=== PATIENT | male | born 1955 | race African-American/Black ===

== ENCOUNTER 2017-06-18 16:20 | Inpatient (IN) | payer OTHER ==
[~2017-06-18] VITALS: Ht 162.6 cm; Wt 72.6 kg
--- NOTE | 2017-06-18 16:45 | ED GENERAL ADULT ---
See Addendum History of Present Illness General Chief Complaint: General Adult Stated Complaint: HIGH BS Source: patient, old records, EMS Exam Limitations: poor historian Vital Signs & Intake/Output Vital Signs & Intake/Output Vital Signs Date Time Temp Pulse Resp B/P B/P Pulse O2 O2 Flow FiO2 Mean Ox Delivery Rate 06/18 1942 99.8 118 18 135/91 98 Room Air 06/18 1820 97 06/18 1814 100.0 06/18 1726 100.0 129 20 143/93 99 Room Air 06/18 1718 101.1 06/18 1701 98 Room Air 06/18 1634 101.1 144 18 150/89 98 Room Air Room Air Allergies Coded Allergies: No Known Allergies (06/18/17) Triage Note: PT TO TRIAGE FOR HYPERGLYCEMIA SINCE THIS MORNING 338 AT HOME. PT HAS A CLINICAL EDUCATION COORDINATOR, HX OF STROKE. PT IS A POOR HISTORIAN, HR 144, TEMP 101.1 AND BG 260 Triage Nurses Notes Reviewed? yes Onset: Just prior to arrival Duration: day(s): (1) Timing: recent history Injury Environment: home Severity: moderate No Modifying Factors: none HPI: Patient is a 62-year-old male with history of diabetes, CVA, hypertension and hyperlipidemia presenting to the emergency department with caregiver from home with chief complaint of elevated blood glucose levels that were increasing as the day went by today. According to the caregiver patient had chills after his morning shower. Patient denying any chest pain palpitations or shortness of breath. Denies any coughing or congestion. According to the caregiver there is no fevers at home just the chills. They decided to come in for evaluation due to increasing blood glucose level. According to the caregiver patient is acting at baseline. Patient has residual deficits of the right upper and lower extremity secondary to recent CVA. Patient unsure if he is on any blood thinners. Patient denying any body aches. Denies any urinary frequency urgency or dysuria. History is limited secondary to patient being a poor historian. (Tamica HAGEN,Mallorie) Past History Travel History Traveled to [place] past 21 day No Medical History Any Pertinent Medical History? see below for history Neurological: CVA EENT: NONE Cardiovascular: hypertension, hyperlipidemia Respiratory: NONE Gastrointestinal: NONE Hepatic: NONE Renal: NONE Musculoskeletal: NONE Psychiatric: NONE Endocrine: diabetes Blood Disorders: NONE Cancer(s): NONE Surgical History Surgical History: non-contributory Psychosocial History What is your primary language Turkmen Tobacco Use: Quit >30 days ago ETOH Use: denies use Illicit Drug Use: denies illicit drug use Family History Hx Contributory? No (Mallorie Russell) Review of Systems Review of Systems Constitutional: Reports: see HPI, fever, malaise. Comments Review of systems: See HPI, All other systems negative. Constitutional, no weight loss HEENT: No visual changes no sore throat no congestion Cardiovascular: No chest pain ,palpitation , orthopnea or ankle swelling Skin, no jaundice no rashes Respiratory: No dyspnea cough sputum or hemoptysis GI: No nausea no vomiting : No dysuria No hematuria Muscle skeletal: no back pain, no neck pain, Neurologic: No numbness no INCREASED confusion Psych: No stress anxiety or depression,. Heme/endocrine: No bruising no bleeding no polyuria or polydipsia Immunology: No splenectomy or history of AIDS (Mallorie Russell) Physical Exam Physical Exam General Appearance: well developed/nourished, no apparent distress, alert, awake , comfortable Comments: Well-developed well-nourished person in no acute distress HEENT: extraocular motion intact, no nystagmus. Pupils equally round and reactive to light and accommodation. Nose is atraumatic. External auditory canal and Tympanic membranes clear. Pharynx normal. No swelling or edema. Moist oral mucosa. Uvula midline. Neck: Supple, no lymphadenopathy, normal range of motion without pain or tenderness, no local rigidity. Back: Nontender, no CVA tenderness. Cardiovascular: Tachycardic rate and rhythms no audible murmurs rubs or gallops to auscultation, normal JVP Respiratory: Chest nontender. Mild respiratory distress, noted on exam is increased work of breathing with use of abdominal muscles..scattered rhonchi to auscultation bilaterally Abdomen: diffusely distended, hypoactive bowel sounds, diffuse tenderness with guarding throughout, no appreciable organomegaly. No ascites Extremity: No edema, no calf tenderness to palpation, normal and equal pulses. Neuro: Alert oriented to person place and time, motor deficits on the right upper and right lower extremity secondary to CVA. Patient has a right foot drop brace in place on the right lower extremity. Retail Sales Teammate strength is 5 out of 5 in left upper extremity. Unable to perform quill stripper strength testing of the right upper extremity. Able to perform straight leg raise on the lower extremities bilaterally. Skin: No appreciable rash on exposed skin, skin is warm and dry. Psych: Mood and affect is normal, memory and judgment is normal. Core Measures ACS in differential dx? No CVA/TIA Diagnosis: No Sepsis Present: Yes Sepsis Focused Exam Completed? Yes (Tamica HAGEN,Mallorie) Progress Differential Diagnoses I considered the following diagnoses in my evaluation of the patient: Pneumonia , bronchitis, influenza, sepsis, UTI, SBO, appendicitis, diverticulitis, pancreatitis Plan of Care: Orders Procedure Date/time Status PROTHROMBIN TIME 06/19 06 Active CBC WITHOUT DIFFERENTIAL 06/19 06 Active BASIC ELECTROLYTES PLUS BUN&CR 06/19 06 Active Add-on Test (ER Only) 06/18 2004 Active STREP PNEUMO URINARY ANTIGEN 06/18 184 Active LEGIONELLA URINARY ANTIGEN 06/18 184 Active Add-on Test (ER Only) 06/18 1722 Active PARTIAL THROMBOPLASTIN TIME 06/18 1653 Complete PROTHROMBIN TIME 06/18 1653 Complete LIPASE 06/18 1653 Complete RAPID VIRAL INFLUENZA A 06/18 1645 Complete CULTURE,URINE 06/18 1644 Active URINALYSIS 06/18 1644 Complete BLOOD CULTURE 06/18 1637 Active TROPONIN LEVEL 06/18 1637 Complete LACTIC ACID 06/18 1637 Complete COMPREHENSIVE METABOLIC PANEL 06/18 1637 Complete CBC WITHOUT DIFFERENTIAL 06/18 1637 Complete ACETONE 06/18 1637 Complete EKG 06/18 1637 Active FingerStick- Glucose 06/18 1624 Active Laboratory Tests 06/18/17 1937: Lactic Acid Cancelled 06/18/17 184: Urine Color YEL, Urine Clarity CLEAR, Urine pH 7.5, Ur Specific [place] 1.010, Urine Protein NEG, Urine Ketones NEG, Urine Nitrite NEG, Urine Bilirubin NEG, Urine Urobilinogen 1.0, Ur Leukocyte Esterase NEG, Ur Microscopic SEDIMENT EXAMINED, Urine RBC 3-5, Urine Hemoglobin SMALL H, Urine Glucose 100 H 06/18/17 1653: Anion Gap 12, Estimated GFR > 60, BUN/Creatinine Ratio 11.7, Glucose 280 H, Lactic Acid 1.3, Calcium 9.5, Total Bilirubin 0.9, AST 28, ALT 43, Alkaline Phosphatase 85, Troponin I < 0.01, Total Protein 7.3, Albumin 4.2, Globulin 3.1, Albumin/Globulin Ratio 1.4, Lipase 75, PT 38.8 H, INR 3.51 H, APTT 38 H, CBC w Diff NO MAN DIFF REQ, RBC 4.88, MCV 89.0, MCH 29.3, MCHC 33.0, RDW 14.3, MPV 6.8 L, Gran % 82.6 H, Lymphocytes % 9.4 L, Monocytes % 7.8, Eosinophils % 0.1 , Basophils % 0.1, Absolute Granulocytes 16.9 H, Absolute Lymphocytes 1.9, Absolute Monocytes 1.6 H, Absolute Eosinophils 0, Absolute Basophils 0, Acetone Level NEGATIVE 06/18/17 1644: Lipase Cancelled Microbiology 06/18 1841 URINE ROUT: Legionella Antigen - RECD 06/18 1841 URINE ROUT: Streptococcus pneumoniae Antigen (M - RECD 06/18 1841 URINE ROUT: Urine Culture - RECD 06/18 1729 NASOPHARYN: Influenza Virus A & B Rapid Smear - COMP 06/18 1715 BLOOD: Blood Culture - RECD 06/18 1637 BLOOD: Blood Culture - ORD 06/18/2017 5:30:56 PM patient is febrile to 101, tachycardic in the 130s, has diffuse abdominal pain with guarding on exam. Patient also has scattered rhonchi on exam. Concern for infectious process secondary to fever and increasing blood glucose levels at home. Patient treated with IV fluids on arrival. Given IV Tylenol for fever. Pending lab work. Patient will likely need IV antibiotics. Flu swab was also sent. Patient will also have chest x- ray and CT of the abdomen. Diagnostic Imaging: Viewed by Me: Radiology Read, CT Scan. Discussed w/RAD: Radiology Read, CT Scan. Radiology Impression: PATIENT: YAS YIN PRESENT AGE: 62 PATIENT ACCOUNT NO: [id number] : 55 LOCATION: [facility] ORDERING PHYSICIAN: Mallorie HAGEN SERVICE DATE: 06/18/17 EXAM TYPE: RAD - XRY-PORTABLE CHEST XRAY EXAMINATION: XR PORTABLE CHEST CLINICAL INFORMATION: Fever. Rule out pneumonia. COMPARISON: None TECHNIQUE: Portable frontal view of the chest was obtained. FINDINGS: There is hazy airspace opacification in the mid left lung. The right lung is clear. No pleural effusions are seen. The cardiomediastinal silhouette is normal. No acute osseous abnormality is seen. IMPRESSION: Hazy opacity in the mid left lung which is most suspicious for pneumonia. Correlate with auscultation. Recommend follow-up imaging to resolution. DICTATED BY: Rogerio Lyons MD DATE/TIME DICTATED:06/18/171750 WHOLESALE ACCOUNT EXECUTIVE:AJAY DATE/TIME TRANSCRIBED:06/18/171750 CONFIDENTIAL, DO NOT COPY WITHOUT APPROPRIATE AUTHORIZATION. <Electronically signed in Other Vendor System> SIGNED BY: Rogerio Lyons MD 06/18/171754, PATIENT: YAS YIN PRESENT AGE: 62 PATIENT ACCOUNT NO: [id number] : 55 LOCATION: [facility] ORDERING PHYSICIAN: Mallorie HAGEN SERVICE DATE: 06/18/17 EXAM TYPE: CAT - CT ABD & PELVIS W IV CONTRAST EXAMINATION: CT ABDOMEN AND PELVIS WITH CONTRAST CLINICAL INFORMATION: Fever, leukocytosis, abdominal distention. COMPARISON: None TECHNIQUE: Multidetector volumetric imaging was performed of the abdomen and pelvis following IV administration of 95 mL of Optiray 320 intravenous contrast. Sagittal and coronal reformatted images were obtained on the technologist's workstation. The patient was unable to raise arms over head, and there is resultant streak artifact. DLP: 403 mGy-cm FINDINGS: LUNG BASES: There are peripheral reticular changes in the right greater than left lung base suggesting some degree of fibrosis. There is some platelike opacity partially visualized along the left major fissure. The imaged heart and pericardium appear unremarkable. There is a hiatal hernia along the dorsal margin of which there is a curvilinear density with the appearance of mesh. Correlation with surgical history in this locale is recommended. LIVER, GALLBLADDER, AND BILIARY TREE: The liver is normal in size, shape, and attenuation. No focal hepatic lesion or biliary ductal dilatation is present. The gallbladder is unremarkable with no evidence of radiopaque gallstones, gallbladder wall thickening, or obvious pericholecystic inflammatory changes. PANCREAS: Unremarkable. SPLEEN: Unremarkable. ADRENAL GLANDS: Unremarkable. KIDNEYS AND URETERS: There is moderate scarring in the mid to lower pole of the right kidney. Otherwise the kidneys are noted to enhance symmetrically. No evidence of hydronephrosis. No convincing nephrolithiasis on this postcontrast acquisition. No abnormality along the course of the ureters. BLADDER: Under distended. Unremarkable. GASTROINTESTINAL TRACT: The stomach is nondistended. Proximal loops of small bowel are fluid-filled and top normal in caliber. There is some slightly more decompressed loops of bowel distally. No discrete transition points are visualized. There is moderate stool in the proximal colon and extensive stool in the distal sigmoid colon and rectum. No diverticula. A normal appendix is visualized with an appendicolith but no surrounding inflammatory change. No free air. No free fluid. ABDOMINAL WALL: No significant hernia is appreciated. LYMPH NODES: No adenopathy. VASCULAR: The aorta is normal in caliber with moderate calcification infrarenally. The portal vein is patent. PELVIC VISCERA: Unremarkable. OSSEOUS STRUCTURES: There are 5 nonrib-bearing lumbar type vertebral bodies. There is a mild dextroconvex thoracolumbar scoliosis. No spondylolysis. Mild multilevel spondylosis. No acute osseous abnormality. IMPRESSION: 1. There is moderate stool in the majority of the colon and extensive stool in the distal sigmoid colon and rectal vault. The loops of small bowel are nonspecific without saul dilatation, and without discrete transition point. No surrounding inflammatory change. No significant colonic diverticula. Normal caliber appendix with a nonobstructive appendicolith. 2. There is a hiatal hernia with a curvilinear mass shows along its posterior margin. Correlation with surgical history is suggested. No surrounding inflammatory changes visualized. 3. There is extensive cortical scarring in the mid to lower pole of the right kidney. No hydronephrosis or nephrolithiasis. 4. There is some peripheral reticular changes in the lung bases, right more than left, suggesting fibrosis. Partially visualized platelike opacity along the left major fissure, possibly atelectasis. DICTATED BY: Darline Rowland MD DATE/TIME DICTATED:06/18/171804 WHOLESALE ACCOUNT EXECUTIVE:AJAY DATE/TIME TRANSCRIBED:1804 CONFIDENTIAL, DO NOT COPY WITHOUT APPROPRIATE AUTHORIZATION. < Electronically signed in Other Vendor System> SIGNED BY: Darline Rowland MD 06/18/171817 Initial ED EKG: SINUS TACHYCARDIA (Mallorie Russell) ED Sepsis Exam Date of Focused Sepsis Exam: 06/18/17 Time of Focused Sepsis Exam: 1810 Sepsis Cardiac Exam: Tachycardia Sepsis Resp Exam: Ronchi Sepsis Cap Refill Exam: >2 sec Sepsis Peripheral Pulse Exam: Normal Sepsis Peripheral Pulse Location: Radial Sepsis Skin Color Exam: Normal for Ethnicity Skin Temp/Moisture Exam: Warm/Dry (Mallorie Russell) Departure Departure Disposition: STILL A PATIENT Condition: Stable Clinical Impression Primary Impression: Pneumonia Qualifiers: Pneumonia type: due to unspecified organism Laterality: left Lung location: lower lobe of lung Qualified Code: J18.1 - Lobar pneumonia, unspecified organism Secondary Impressions: Sepsis Qualifiers: Sepsis type: sepsis due to unspecified organism Qualified Code: A41.9 - Sepsis, unspecified organism Referrals: Ava KAUR,Devendra Bhagat (PCP/Family) Departure Forms: Customer Survey General Discharge Information Admission Note Spoke With: Dale Garcia MD Documentation of Exam: Documentation of any treatments & extenuating circumstances including Concerns Regarding Discharge (functional status, medication knowledge or non-compliance, living conditions, etc.) that warrant an admission rather than observation: Patient is septic, requiring IV antibiotics for pneumonia, requiring blood cultures return, pulmonology consultation, serial breathing treatments, IV hydration per sepsis protocol. Discharge at this time is medically harmful, patient poor candidate for outpatient treatment. (Mallorie Russell) PA/INSPECTOR FILTER TIP Co-Sign Statement Statement: ED Attending supervision documentation- [] I saw and evaluated the patient. I have also reviewed all the pertinent lab results and diagnostic results. I agree with the findings and the plan of care as documented in the PA's/INSPECTOR FILTER TIP's documentation. [X] I have reviewed the ED Record and agree with the PA's/INSPECTOR FILTER TIP's documentation. [] Additions or exceptions (if any) to the PAs/INSPECTOR FILTER TIP's note and plan are summarized below: [] (Carmelo Posadas DO) Critical Care Note Critical Care Note Critical Care Time: 30-74 min (Mallorie Russell) Critical Care Time: 30-74 min (Mallorie Russell)
[2017-06-18 17:12] LABS: ABSOLUTE BASOPHIL COUNT 0 /CUMM (0.0-0.2); ABSOLUTE EOSINOPHIL COUNT 0 /CUMM (0.0-0.7); ABSOLUTE GRANULOCYTE CT 16.9 /CUMM (1.4-6.5); ABSOLUTE LYMPH COUNT 1.9 /CUMM (1.2-3.4); ABSOLUTE MONOCYTE COUNT 1.6 /CUMM (0.10-0.60); BASOPHIL % 0.1 % (0.0-2.0); EOSINOPHIL % 0.1 % (0-5); HEMATOCRIT 43.4 % (42-52); MEAN CORPUSCULAR HGB 29.3 PG (27.0-31.0); MEAN PLATELET VOLUME 6.8 FL (7.4-10.4); PLATELET COUNT 298 /CUMM (130-400); RBC DISTRIBUTION WIDTH 14.3 % (11.5-14.5); RED BLOOD CELL CT 4.88 /CUMM (4.70-6.10); WHITE BLOOD CELL COUNT 20.5 /CUMM (4.8-10.8)
[2017-06-18 17:15] LABS: GRANULOCYTE % 82.6 % (42.2-75.2)
[2017-06-18 17:46] LABS: PT 38.8 SEC (9.4-12.5); PTT 38 SEC (25-37)
--- NOTE | 2017-06-18 17:55 | RADIOLOGY REPORT ---
EXAMINATION: XR PORTABLE CHEST CLINICAL INFORMATION: Fever. Rule out pneumonia. COMPARISON: None TECHNIQUE: Portable frontal view of the chest was obtained. FINDINGS: There is hazy airspace opacification in the mid left lung. The right lung is clear. No pleural effusions are seen. The cardiomediastinal silhouette is normal. No acute osseous abnormality is seen. IMPRESSION: Hazy opacity in the mid left lung which is most suspicious for pneumonia. Correlate with auscultation. Recommend follow-up imaging to resolution.
--- NOTE | 2017-06-18 18:18 | CT SCAN REPORT ---
EXAMINATION: CT ABDOMEN AND PELVIS WITH CONTRAST CLINICAL INFORMATION: Fever, leukocytosis, abdominal distention. COMPARISON: None TECHNIQUE: Multidetector volumetric imaging was performed of the abdomen and pelvis following IV administration of 95 mL of Optiray 320 intravenous contrast. Sagittal and coronal reformatted images were obtained on the technologist's workstation. The patient was unable to raise arms over head, and there is resultant streak artifact. DLP: 403 mGy-cm FINDINGS: LUNG BASES: There are peripheral reticular changes in the right greater than left lung base suggesting some degree of fibrosis. There is some platelike opacity partially visualized along the left major fissure. The imaged heart and pericardium appear unremarkable. There is a hiatal hernia along the dorsal margin of which there is a curvilinear density with the appearance of mesh. Correlation with surgical history in this locale is recommended. LIVER, GALLBLADDER, AND BILIARY TREE: The liver is normal in size, shape, and attenuation. No focal hepatic lesion or biliary ductal dilatation is present. The gallbladder is unremarkable with no evidence of radiopaque gallstones, gallbladder wall thickening, or obvious pericholecystic inflammatory changes. PANCREAS: Unremarkable. SPLEEN: Unremarkable. ADRENAL GLANDS: Unremarkable. KIDNEYS AND URETERS: There is moderate scarring in the mid to lower pole of the right kidney. Otherwise the kidneys are noted to enhance symmetrically. No evidence of hydronephrosis. No convincing nephrolithiasis on this postcontrast acquisition. No abnormality along the course of the ureters. BLADDER: Under distended. Unremarkable. GASTROINTESTINAL TRACT: The stomach is nondistended. Proximal loops of small bowel are fluid-filled and top normal in caliber. There is some slightly more decompressed loops of bowel distally. No discrete transition points are visualized. There is moderate stool in the proximal colon and extensive stool in the distal sigmoid colon and rectum. No diverticula. A normal appendix is visualized with an appendicolith but no surrounding inflammatory change. No free air. No free fluid. ABDOMINAL WALL: No significant hernia is appreciated. LYMPH NODES: No adenopathy. VASCULAR: The aorta is normal in caliber with moderate calcification infrarenally. The portal vein is patent. PELVIC VISCERA: Unremarkable. OSSEOUS STRUCTURES: There are 5 nonrib-bearing lumbar type vertebral bodies. There is a mild dextroconvex thoracolumbar scoliosis. No spondylolysis. Mild multilevel spondylosis. No acute osseous abnormality. IMPRESSION: 1. There is moderate stool in the majority of the colon and extensive stool in the distal sigmoid colon and rectal vault. The loops of small bowel are nonspecific without saul dilatation, and without discrete transition point. No surrounding inflammatory change. No significant colonic diverticula. Normal caliber appendix with a nonobstructive appendicolith. 2. There is a hiatal hernia with a curvilinear mass shows along its posterior margin. Correlation with surgical history is suggested. No surrounding inflammatory changes visualized. 3. There is extensive cortical scarring in the mid to lower pole of the right kidney. No hydronephrosis or nephrolithiasis. 4. There is some peripheral reticular changes in the lung bases, right more than left, suggesting fibrosis. Partially visualized platelike opacity along the left major fissure, possibly atelectasis.
--- NOTE | 2017-06-18 20:10 | Admission Certification ---
Admission Certification Certification Statement - As attending physician, I certify that at the time of - admission, based on clinical presentation, severity of - symptoms, need for further diagnostic testing and - therapeutic interventions, and risk of adverse outcomes - without in-hospital treatment, in my clinical assessment, - this patient requires an acute hospital stay for a minimum - of two nights or longer. I have also considered psychsocial - factors such as support system, advanced age, financial - issues, cognitive issues, and failed out-patient treatments, - past re-admission history, safety of patient, and lack of - compliance as applicable. Specific rationale supporting this admission is: Sepsis, community acquired pneumonia.
--- NOTE | 2017-06-18 20:45 | History & Physical ---
Lucina Coy 06/18/172044: General Information and HPI History of Present Illness: Mr. Herbert is a 62-year-old male with a past medical history of CVA with residual RUE paralysis, DM, HTN, HLD, AFIB, seizures who presents to the ED with hyperglycemia and chills for one day. Patient poor historian. Patient has a home caregiver. As per patient's caregiver-Roscoe, he reports patient was very lethargic today which prompted him to check his fingerstick glucose which measured in the 160s which is unusual for him, yesterday patient's glucose reading was in 80-90s. He reached out to the visiting nurse who advised to give the patient fluids. Caregiver also reports patient was having chills while bathing and in bed but did not record his temperature. Patient has a good appetite and does not have any diet restrictions or dysphagia. Patient has a caregiver 5 days a week and a visiting nurse once a week. At baseline he walks with a walker. His caregiver assist him with his ADLs. Patient reports his last bowel movement was yesterday. He denies palpitations, SOB, CP, nausea, vomiting, urinary or bowel symptoms. Allergies/Medications Allergies: Coded Allergies: No Known Allergies (06/18/17) Home Med list Albuterol Sulfate (Proair Hfa) 90 MCG HFA.AER.AD 2 PUF INH Q4-6 PRN PRN lung (Reported) Fluticasone/Salmeterol (Advair 250-50 Diskus) 250 MCG-50 MCG/DOSE BLST.W.DEV 1 PUF INH BID lung (Reported) Metformin HCl (Glucophage) 1,000 MG TABLET 1 TAB PO DAILY dm (Reported) Metoprolol Tartrate 25 MG TABLET 1 TAB PO BID heart (Reported) Pantoprazole Sodium (Protonix) 40 MG TABLET.DR 1 TAB PO DAILY gerd (Reported) Simvastatin (Simvastatin*) 20 MG TABLET 1 TAB PO QPM heart (Reported) Tamsulosin HCl (Flomax) 0.4 MG CAP.ER.24H 1 CAP PO DAILY BPH (Reported) Warfarin Sodium (Coumadin) 6 MG TABLET 1 TAB PO DAILY heart afib (Reported) Zonisamide (Zonegran) 100 MG CAPSULE 1 CAP PO DAILY SEIZURE (Reported) Past History Travel History Traveled to [place] past 21 day No Medical History Neurological: CVA EENT: NONE Cardiovascular: hypertension, hyperlipidemia Respiratory: NONE Gastrointestinal: NONE Hepatic: NONE Renal: NONE Musculoskeletal: NONE Psychiatric: NONE Endocrine: diabetes Blood Disorders: NONE Cancer(s): NONE Surgical History Surgical History: non-contributory Past Family/Social History Psychosocial History ETOH Use: denies use Illicit Drug Use: denies illicit drug use Review of Systems Review of Systems Constitutional: Reports: see HPI. Exam & Diagnostic Data Last 24 Hrs of Vital Signs/I&O Vital Signs Date Time Temp Pulse Resp B/P B/P Pulse O2 O2 Flow FiO2 Mean Ox Delivery Rate 06/18 1942 99.8 118 18 135/91 98 Room Air 06/18 1820 97 06/18 1814 100.0 06/18 1726 100.0 129 20 143/93 99 Room Air 06/18 1718 101.1 06/18 1701 98 Room Air 06/18 1634 101.1 144 18 150/89 98 Room Air Room Air Physical Exam General Appearance Alert, Oriented X3, Cooperative, No Acute Distress Sepsis Skin Exam (color): Normal for Ethnicity HEENT Atraumatic, PERRLA, EOMI, Mucous Membr. moist/pink Neck Supple, No JVD Cardiovascular Regular Rate, Normal S1, Normal S2 Lungs BL rhonchi Abdomen Normal Bowel Sounds, L-side abdominal tenderness Neurological Diminished sensation on RLE Extremities No Edema, Normal Pulses, No Tenderness/Swelling, RUE paralysis, LE/ RLE 4/5 motor strength Sepsis Peripheral Pulse Location: Dorsalis Pedis Sepsis Peripheral Pulse Exam: Normal Sepsis Cap Refill Exam: <2 Sec Last 24 Hrs of Labs/Kaushik: Laboratory Tests 06/18/17 193: Lactic Acid Cancelled 06/18/171841: Urine Color YEL, Urine Clarity CLEAR, Urine pH 7.5, Ur Specific [place] 1.010, Urine Protein NEG, Urine Ketones NEG, Urine Nitrite NEG, Urine Bilirubin NEG, Urine Urobilinogen 1.0, Ur Leukocyte Esterase NEG, Ur Microscopic SEDIMENT EXAMINED, Urine RBC 3-5, Urine Hemoglobin SMALL H, Urine Glucose 100 H 06/18/17 165: Anion Gap 12, Estimated GFR > 60, BUN/Creatinine Ratio 11.7, Glucose 280 H, Lactic Acid 1.3, Calcium 9.5, Total Bilirubin 0.9, AST 28, ALT 43, Alkaline Phosphatase 85, Troponin I < 0.01, Total Protein 7.3, Albumin 4.2, Globulin 3.1, Albumin/Globulin Ratio 1.4, Lipase 75, PT 38.8 H, INR 3.51 H, APTT 38 H, CBC w Diff NO MAN DIFF REQ, RBC 4.88, MCV 89.0, MCH 29.3, MCHC 33.0, RDW 14.3, MPV 6.8 L, Gran % 82.6 H, Lymphocytes % 9.4 L, Monocytes % 7.8, Eosinophils % 0.1 , Basophils % 0.1, Absolute Granulocytes 16.9 H, Absolute Lymphocytes 1.9, Absolute Monocytes 1.6 H, Absolute Eosinophils 0, Absolute Basophils 0, Acetone Level NEGATIVE 06/18/17 1644: Lipase Cancelled Microbiology 06/18 2130 LOWER RESP: Respiratory Culture - ORD 06/18 2130 LOWER RESP: Gram Stain - ORD 06/18 1841 URINE ROUT: Legionella Antigen - COMP 06/18 1841 URINE ROUT: Streptococcus pneumoniae Antigen (M - COMP 06/18 1841 URINE ROUT: Urine Culture - RECD 06/18 1729 NASOPHARYN: Influenza Virus A & B Rapid Smear - COMP 06/18 1715 BLOOD: Blood Culture - RECD 06/18 1637 BLOOD: Blood Culture - ORD Diagnostic Data EKG Results NS, HR 135, QTc 330 CXR Results FINDINGS: There is hazy airspace opacification in the mid left lung. The right lung is clear. No pleural effusions are seen. The cardiomediastinal silhouette is normal. No acute osseous abnormality is seen. IMPRESSION: Hazy opacity in the mid left lung which is most suspicious for pneumonia. Correlate with auscultation. Recommend follow-up imaging to resolution. Other Results CT ABDOMEN AND PELVIS WITH CONTRAST IMPRESSION: 1. There is moderate stool in the majority of the colon and extensive stool in the distal sigmoid colon and rectal vault. The loops of small bowel are nonspecific without saul dilatation, and without discrete transition point. No surrounding inflammatory change. No significant colonic diverticula. Normal caliber appendix with a nonobstructive appendicolith. 2. There is a hiatal hernia with a curvilinear mass shows along its posterior margin. Correlation with surgical history is suggested. No surrounding inflammatory changes visualized. 3. There is extensive cortical scarring in the mid to lower pole of the right kidney. No hydronephrosis or nephrolithiasis. 4. There is some peripheral reticular changes in the lung bases, right more than left, suggesting fibrosis. Partially visualized platelike opacity along the left major fissure, possibly atelectasis. Assessment/Plan Assessment: Mr. Herbert is a 62-year-old male with a past medical history of CVA with residual RUE paralysis, DM, HTN, HLD, AFIB, seizures who presents to the ED with lethargy , hyperglycemia and chills for one day. Though patient meets sepsis criteria per SIRS, his score is 0 (not high mortality risk) per qSOFA without evidence of organ failure but can be repeated if patient's clinical status changes. Problem list: CAP Supratherapeutic INR Plan: Admit to general med for further evaluation and management IV ceftriaxone and azithromycin for CAP Resume home meds Dose Warfarin per INR Hemoglobin A1c Accuchek and Novolog SS Await pancultures Pain: Acetaminophen Contact supervising caregiver-Ted (vm left 06/18/17) Diet: Heart healthy DVT ppx: Warfarin Code: Full As Ranked By This Provider Problem List: 1. Pneumonia Qualifiers Pneumonia type: due to unspecified organism Laterality: left Lung location: lower lobe of lung Qualified Code: J18.1 - Lobar pneumonia, unspecified organism Core Measures/Misc (11/18) Acute Coronary Syndrome ACS Diagnosis: No Congestive Heart Failure Congestive Heart Failure Diagnosis No Cerebrovascular Accident CVA/TIA Diagnosis: No VTE (View Protocol) VTE Risk Factors Age>40 No Mechanical VTE Prophylaxis d/t N/A MechProphylax Ordered No VTE Pharm Prophylaxis d/t NA PharmProphylax ordered Sepsis (View protocol) Sepsis Present: Yes Ramila Plummer 06/19/17 0124: Resident Review Statement Resident Statement: examined this patient, discussed with lab intern, agreed with lab intern, discussed with family, amended to note Other Findings: 62-year-old gentleman with past medical history of CVA . Right upper extremity residual weakness And A. fib on warfarin, COPD on Advair, diabetes and possible seizures came to the hospital with chief complaint of feeling weak and chills and elevated sugar for 1 day. Information was obtained from patient himself and patient blood donor recruiter Roscoe monroe. According to him patient is blood sugar in the morning was around 160s which is abnormal for him and his usual blood sugars around 80s and 90s and also he had an episode of chills. Patient also reported that he was told that his temperature was around 100s. Patient adamantly denies any chest pain, nausea, vomiting, abdominal pain, diarrhea, constipation. He is on several the medication that he takes for his medical conditions except the CVA. Patient uses a walker for ambulation and needs assist for his ADLS. Patient power of attorney lawyer/legal guardian is Mr. Ted monroe. Multiple attempts was made with no success. Vital signs in the ED was notable for fever of 101.1 with heart rate of 144 with stable blood pressure Physical exam patient is alert and oriented 3 Neck Supple, No JVD, Cardiovascular irigular Rate, Normal S1, Normal S2 Lungs BL wheezing Abdomen Normal Bowel Sounds, Soft, No Tenderness, No Hepatospenomegaly, No Masses Neurological Normal Gait, Normal Speech, Strength at 5/5 X4 Ext, Sensation Intact Extremities No Clubbing, No Cyanosis, No Edema,Normal Pulses Labs are notable for WBC of 20 Sodium 134, creatinine 1.2, glucose 280, INR 3.51 Troponin, LFTs, lipase were unremarkable chest X ray Hazy opacity in the mid left lung which is most suspicious for pneumonia. CT pelvis/abdomen 1. There is moderate stool in the majority of the colon and extensive stool in the distal sigmoid colon and rectal vault. The loops of small bowel are nonspecific without saul dilatation, and without discrete transition point. No surrounding inflammatory change. No significant colonic diverticula. Normal caliber appendix with a nonobstructive appendicolith. 2. There is a hiatal hernia with a curvilinear mass shows along its posterior margin. Correlation with surgical history is suggested. No surrounding inflammatory changes visualized. 3. There is extensive cortical scarring in the mid to lower pole of the right kidney. No hydronephrosis or nephrolithiasis. 4. There is some peripheral reticular changes in the lung bases, right more than left, suggesting fibrosis. Partially visualized platelike opacity along the left major fissure, possibly atelectasis. rapid flu negative Assessment Sepsis due to pneumonia with PSI/PORT score 91 A. fib on warfarin History of CVA History of diabetes History of seizures (most likely) History of possible GERD history of COPD Plan Admit to general medicine floor Continue IV ceftriaxone and azithromycin Blood cultures, sputum cultures, urine Legionella, urine strep Hold metformin and put the patient on finger sticks, sliding scale insulin, diabetic diet Continue Zonegran Continue omeprazole and statin and metoprolol 25 twice a day hold off warfarin since INR was more than 3 and recheck in am TRC nebs and continue Advair Patient power of attorney lawyer should be called to confirm the medications, past medical history and CODE STATUS Full code for now, due to prophylaxis mechanical and the Lovenox, Tylenol for pain, diabetic diet Jose KAUR, [facility] 06/19/17 0128: Attending MD Review Statement Attending Statement Attending MD Statement: examined this patient, discuss w/resident/PA/AIR PLANT ENGINEER, agreed w/resident/PA/AIR PLANT ENGINEER, reviewed images, amended to note Attending Assessment/Plan: 62 yo M with h/o CVA () with residual right sided weakness, Afib on coumadin, T2DM, HTN, COPD, ?seizure disorder, unclear history of PE/DVT, is brought in by caregiver for evaluation of elevated blood sugar levels, fever and chills. Patient is a limited historian, he states "I did not feel good and I had a fever at home". We tried to obtain history from caregiver but was not able to add much. Patient eats a regular diet and does not cough/choke on food. Patient reported left sided lower quadrant discomfort on ER arrival, but it seems to have gotten better by the time we evaluated him. He denies chest pain, dyspnea, cough, nausea or vomiting. At baseline, patient ambulates with a quad cane and needs helps with ADLs. He reports he was last admitted to [facility] but not sure for what reason. Vitals: Tmax 101.1, tachycardic, BP stable, sats 98% RA. Exam: AAO, dry mucosa, Chest scattered rhonchi and wheeze, Heart S1S2 regular, tachcyardia, Abd soft, distended, mild tenderness to left lower quadrant, Neuro: right sided weakness from previous stroke. Labs: WBC 20, Na 134, BUN 14, Creat 1.2, glucose 280, lactic acid 1.3, INR 3.51, trop negative, LFTs normal. Flu swab negative. UA clear. Acetone negative. CXR: hazy opacity in mid left lung suspicious for pneumonia. CT abd/pelvis: peripheral reticular changes in lung bases R>L suggesting fibrosis, platelike opacity along left major fissure; hiatal hernia; moderate stool in colon. EKG: Sinus tachycardia, Qtc 135. Assessment and plan: 1. Sepsis, community acquired pneumonia 2. History of COPD 3. H/o previous CVA with right sided deficit 4. Afib on coumadin now with supratherapeutic INR - Admit to general medicine - TRC nebs - Sputum and blood cultures - Urine legionella and strep Ag - IV ceftriaxone and azithro - Gentle IV hydration - Patient was able to swallow ok on bedside eval - Obtain records from PCP's office med list, medical problems, etc - Diabetes management, check HbA1c, hold metformin, initiate novolog SS - Nutrition consult - Continue advair - Continue simvastatin, metoprolol, zonisamide confirm meds in AM - Hold coumadin tonight, recheck INR in AM and dose accordingly - Treat constipation with miralax, colace and senna DVT ppx high INR on coumadin. Full code.
[2017-06-18] MEDS ORDERED: FLOMAX0.4 M1 PO (21:32)
[2017-06-18] MEDS ORDERED: ADVAIR 250-501 EACH INH (21:32)
[2017-06-18] MEDS ORDERED: PROTONIX40 M3 PO (21:32)
[2017-06-18] MEDS ORDERED: ZONEGRAN100 M1 PO (21:34)
[2017-06-18] MEDS ORDERED: METOPROLOL TART25 M1 PO (21:35)
[2017-06-18] MEDS ORDERED: COUMADIN6 M1 PO (21:35)
[2017-06-18] MEDS ORDERED: METFORMIN HCL500 M3 PO (21:36)
[2017-06-18] MEDS ORDERED: PROAIR HFA8.5 GM INH (21:39)
[2017-06-18] MEDS ORDERED: GLUCOPHAGE1000 M1 PO (21:40)
[2017-06-18] MEDS ORDERED: SIMVASTATIN20 M2 PO (21:40)
[2017-06-19 06:06] LABS: ABSOLUTE BASOPHIL COUNT 0 /CUMM (0.0-0.2); ABSOLUTE EOSINOPHIL COUNT 0.1 /CUMM (0.0-0.7); ABSOLUTE GRANULOCYTE CT 14.6 /CUMM (1.4-6.5); ABSOLUTE LYMPH COUNT 2.1 /CUMM (1.2-3.4); ABSOLUTE MONOCYTE COUNT 1.5 /CUMM (0.10-0.60); BASOPHIL % 0.1 % (0.0-2.0); EOSINOPHIL % 0.7 % (0-5); GRANULOCYTE % 79.8 % (42.2-75.2); HEMATOCRIT 42.8 % (42-52); MEAN CORPUSCULAR HGB 29.4 PG (27.0-31.0); MEAN CORPUSCULAR VOLUME 89.3 FL (80.0-94.0); MEAN PLATELET VOLUME 6.6 FL (7.4-10.4); PLATELET COUNT 290 /CUMM (130-400); RBC DISTRIBUTION WIDTH 14.4 % (11.5-14.5); WHITE BLOOD CELL COUNT 18.3 /CUMM (4.8-10.8)
[2017-06-19 06:15] LABS: PT 25.8 SEC (9.4-12.5)
--- NOTE | 2017-06-19 07:25 | PN- Housestaff ---
Lamont Weber MD,[facility] 06/19/17 0724: Subjective Follow-up For: Pneumonia Supratherapeutic INR A. fib on warfarin Chronic medical conditions Subjective: Patient visited today, miesha dean, was lying in bed comfortably in no acute distress, was alert and oriented. No fever or chills, no shortness of breathing, no cough or sputum, no chest pain , no other events. We will obtain CAT scan without contrast for further evaluation of the opacity observed in chest x-ray. Considering INR was in therapeutic range we will continue to dose Coumadin today 6 mg home dose. Review of Systems Constitutional: Reports: see HPI. Objective Last 24 Hrs of Vital Signs/I&O Vital Signs Date Time Temp Pulse Resp B/P B/P Pulse O2 O2 Flow FiO2 Mean Ox Delivery Rate 06/19 1353 Room Air 06/19 1344 98.2 100 18 110/66 98 Room Air 06/19 1231 97.1 96 18 144/81 98 06/19 0919 98 Room Air 06/19 0847 98.7 71 18 135/85 06/19 0847 98.7 71 18 135/85 99 Room Air 06/19 0815 98 Room Air 06/19 0606 98.6 06/19 0600 98.3 80 18 139/78 99 Room Air 06/19 0134 99.8 93 18 137/90 98 Room Air 06/18 1943 99.8 118 18 135/91 98 Room Air 06/18 1820 97 06/18 1814 100.0 06/18 1726 100.0 129 20 143/93 99 Room Air 06/18 1718 101.1 06/18 1701 98 Room Air 06/18 1634 101.1 144 18 150/89 98 Room Air Room Air Intake & Output 06/19 1600 06/19 0800 06/19 0000 Intake Total 100 1240 250 Output Total 200 200 400 Balance -100 1040 -150 Intake, IV 1000 250 Intake, Oral 100 240 0 Output, Urine 200 200 400 Patient 160 lb Weight Weight Reported by Patient Measurement Method Physical Exam General Appearance: Alert, Oriented X3, Cooperative, No Acute Distress HEENT: Atraumatic Cardiovascular: Normal S1, Normal S2 Lungs: Clear to Auscultation, Normal Air Movement, crackles in the left side Abdomen: Soft, No Tenderness Neurological: right UE 0-1/5, left distal LE 0-1/5, proximal 4/5, no sensation Extremities: No Edema Current Medications: Current Medications Sig/Juan Start time Last Medication Dose Route Stop Time Status Admin Acetaminophen 0 .STK-MED ONE 06/19 1307 DC PO Acetaminophen 0 .STK-MED ONE 06/19 0609 DC PO Acetaminophen 650 MG Q6 06/18 2359 AC 06/19 PO 1309 Acetaminophen 0 .STK-MED ONE 06/18 1711 DC IV Acetaminophen 1,000 MG ONCE ONE 06/18 1700 DC 06/18 N/A 1 UNIT IV 06/18 1714 1718 Albuterol Sulfate 3 ML ONCE ONE 06/18 1745 DC 06/18 INH 06/18 1746 1819 Atorvastatin Calcium 10 MG 1700 06/19 1700 AC PO Azithromycin 500 MG DAILY 06/19 1800 AC Dextrose/Water 250 ML IV Azithromycin 500 MG ONCE ONE 06/18 1815 DC 06/18 Dextrose/Water 250 ML IV 06/18 1914 1841 Ceftriaxone Sodium 1,000 MG DAILY 06/19 1800 AC IV Ceftriaxone Sodium 0 .STK-MED ONE 06/18 1836 DC .ROUTE Ceftriaxone Sodium 1,000 MG ONCE ONE 06/18 1815 DC 06/18 IV 06/18 1816 1841 Enoxaparin Sodium 40 MG DAILY 06/19 0900 AC 06/19 SC 0847 Insulin Aspart 0 TIDAC 06/19 0800 AC 06/19 SC 0827 Ipratropium [place] 2.5 ML ONCE ONE 06/18 1745 DC 06/18 INH 06/18 1746 1819 Metoprolol Tartrate 25 MG BID 06/19 0900 AC 06/19 PO 0847 Omeprazole 40 MG DAILY AC 06/19 0700 AC 06/19 PO 0606 Omeprazole 0 .STK-MED ONE 06/19 0609 DC PO Polyethylene Glycol 17 GM DAILY 06/19 1145 AC 06/19 PO 1309 Senna/Docusate Sodium 2 TAB DAILY 06/19 1145 AC 06/19 PO 1309 Sodium Chloride 1,000 ML BOLUS ONE 06/18 1745 DC 06/18 IV 06/18 1844 1841 Sodium Chloride 1,000 ML BOLUS ONE 06/18 1700 DC 06/18 IV 06/18 1859 1718 Warfarin Sodium 6 MG COUMADIN 1700 ONE 06/19 1700 AC PO 06/19 1701 Zonisamide 100 MG DAILY 06/19 0900 AC 06/19 PO 0847 Last 24 Hrs of Lab/Kaushik Results Last 24 Hrs of Labs/Mics: Laboratory Tests 06/19/17 0549: Anion Gap 12, Estimated GFR > 60, BUN/Creatinine Ratio 10.0, PT 25.8 H, INR 2.35 H, CBC w Diff MAN DIFF ORDERED, RBC 4.80, MCV 89.3, MCH 29.4, MCHC 33.0, RDW 14.4, MPV 6.6 L, Gran % 79.8 H, Lymphocytes % 11.5 L, Monocytes % 7.9, Eosinophils % 0.7, Basophils % 0.1, Absolute Granulocytes 14.6 H, Segmented Neutrophils 81 H, Band Neutrophils 1, Absolute Lymphocytes 2.1, Lymphocytes 14 L, Monocytes 4, Absolute Monocytes 1.5 H, Absolute Eosinophils 0.1, Absolute Basophils 0, Platelet Estimate ADEQUATE, Polychromasia 1+, Poikilocytosis 1+, Ovalocytes 1+, Fld Total RBCs Counted 100 06/18/17 1937: Lactic Acid Cancelled 06/18/17 1842: Urine Color YEL, Urine Clarity CLEAR, Urine pH 7.5, Ur Specific [place] 1.010, Urine Protein NEG, Urine Ketones NEG, Urine Nitrite NEG, Urine Bilirubin NEG, Urine Urobilinogen 1.0, Ur Leukocyte Esterase NEG, Ur Microscopic SEDIMENT EXAMINED, Urine RBC 3-5, Urine Hemoglobin SMALL H, Urine Glucose 100 H 06/18/17 1653: Anion Gap 12, Estimated GFR > 60, BUN/Creatinine Ratio 11.7, Glucose 280 H, Hemoglobin A1c 7.9 H, Lactic Acid 1.3, Calcium 9.5, Total Bilirubin 0.9, AST 28 , ALT 43, Alkaline Phosphatase 85, Troponin I < 0.01, Total Protein 7.3, Albumin 4.2, Globulin 3.1, Albumin/Globulin Ratio 1.4, Lipase 75, PT 38.8 H, INR 3.51 H, APTT 38 H, CBC w Diff NO MAN DIFF REQ, RBC 4.88, MCV 89.0, MCH 29.3, MCHC 33.0, RDW 14.3, MPV 6.8 L, Gran % 82.6 H, Lymphocytes % 9.4 L, Monocytes % 7.8, Eosinophils % 0.1, Basophils % 0.1, Absolute Granulocytes 16.9 H, Absolute Lymphocytes 1.9, Absolute Monocytes 1.6 H, Absolute Eosinophils 0, Absolute Basophils 0, Acetone Level NEGATIVE 06/18/17 1644: Lipase Cancelled Microbiology 06/18 2130 LOWER RESP: Respiratory Culture - CAN Cancelled: NO SAMPLE COLLECTED 06/18 2130 LOWER RESP: Gram Stain - CAN Cancelled: NO SAMPLE COLLECTED 06/18 1841 URINE ROUT: Legionella Antigen - COMP 06/18 1841 URINE ROUT: Streptococcus pneumoniae Antigen (M - COMP 06/18 1841 URINE ROUT: Urine Culture - RES 06/18 1729 NASOPHARYN: Influenza Virus A & B Rapid Smear - COMP 06/18 1715 BLOOD: Blood Culture - RES 06/18 163 BLOOD: Blood Culture - CAN Cancelled: SPECIMEN NEVER RECDEIVED Assessment/Plan Assessment: Mr. Herbert is a 62-year-old male presented with weakness and increased BS PMH: CVA with residual RUE paralysis, DM, HTN, HLD, AFIB, seizures Patient meet sepsis criteria, was admitted to GM floor for management of following conditions: Problem list: Sepsis, most likely sec to CAP Supratherapeutic INR Plan: - Admit to general med for further evaluation and management - IV ceftriaxone and azithromycin for CAP - Resume home meds - Dose Warfarin per INR, today 2.3, will dose 6mg - Hemoglobin A1c - Accuchek and Novolog SS - Await pancultures - Pain: Acetaminophen - Contact supervising caregiver-Ted, contacted today with no answer - CT scan of chest without contrast for further evlauation of opacity Diet: Heart healthy DVT ppx: Warfarin Code: Full Problem List: 1. Sepsis 2. Pneumonia Pain Ratin Pain Location: None Pain Goal: Pain 4 or less Pain Plan: Continue current plan Tomorrow's Labs & Rationales: CBC NIHARIKAP Sydney KAUR,Elena 06/19/17 1155: Attending MD Review Statement Attending Statement Attending MD Statement: examined this patient, discuss w/resident/PA/HUMAN INTELLIGENCE, agreed w/resident/PA/HUMAN INTELLIGENCE, reviewed EMR data (avail), discussed with nursing, amended to note Attending Assessment/Plan: Patient seen and examined. Resting comfortably and not in any acute distress. He was brought in by his caretakers yesterday on account of sudden onset of lethargy. While being worked up in the emergency room he was found to be febrile and to have a left lower lobe infiltrate. Patient seen and examined. He is alert and oriented 3 and conversant appropriately although very jovial and always smiling. He did answer questions appropriately. He was able to provide a history in which she reports being in his usual state of health until yesterday evening when he became very weak and was unable to ambulate with his cane which he uses at baseline. He denies any symptoms that would point towards an infectious process. Denied any respiratory or gastrointestinal complaints when questioned. He did admit to history of tobacco use but reports quitting cigarette use several years ago. Physical examination is significant for right upper extremity weakness with power of 2/5 in the right upper extremity. Power in his lower extremities appear appropriate bilaterally. his heart sounds are regular with no audible murmur. He has adequate entry bilaterally with no added sounds. His abdomen is distended. The patient reports that this is chronic. Abdomen is soft and nontender with no palpable masses. He has no peripheral edema. He has no palpable adenopathy. Problems: 1. Fever; presumed to be secondary to left lower lobe pneumonia. 2. Lethargy; secondary to above. 3. Distended abdomen; chronic per patient. CT abdomen showed stool retention. 4. Abnormal chest x-ray; presumed to be secondary to pneumonia. Patient however has no respiratory complaints. It is noted a CT abdomen shows peripheral reticular changes in the lung bases right more than left suggesting fibrosis. And possibly atelectasis as well. Plan: Patient has empirically been started on Rocephin/azithromycin for presumed community acquired pneumonia. Recommend chest CT for further evaluation of lung pathology identified on x-ray given paucity of respiratory symptoms. Obtain blood and urine cultures. Begin patient on a bowel regimen for constipation. Further disposition to be determined based on results of CT scan and cultures. Determine baseline mental status please follow-up with patient's power of attorney recruiter and any other additional history.
[2017-06-19 13:44] VITALS: BP 110/66
--- NOTE | 2017-06-19 16:51 | CT SCAN REPORT ---
EXAMINATION: CT CHEST WITHOUT CONTRAST CLINICAL INFORMATION: Fever and increased white blood cell count. Opacity on chest x-ray. COMPARISON: Chest x-ray dated 06/18/2017. CT scan of the abdomen and pelvis dated 06/18/2017. TECHNIQUE: Multidetector volumetric CT imaging of the chest was obtained noncontrast. Sagittal and coronal reformations were obtained. DLP: 238.59 mGy-cm. FINDINGS: Evaluation is limited due to motion artifact. LUNGS: There is extensive paraseptal emphysematous change seen in the upper lobes bilaterally with the largest subpleural bullous changes seen laterally along the left upper lobe. Moderate centrilobular emphysema and superimposed subpleural reticular opacities with thickening of the interlobular septae is noted, suspicious for superimposed interstitial lung disease. There are small areas of subpleural honeycomb cyst formation, seen for example posterior medially within the right lower lobe (series 4, image 315) with associated mild tubular traction bronchiectasis and in the left upper lobe and lower lobe (series 4, image 217). Findings may be related to respiratory bronchiolitis interstitial lung disease in the correct clinical setting. There is a superimposed segmental area of groundglass opacification seen in the left upper lobe, extending from the hilum to the lateral lung periphery along the left major fissure, suspicious for superimposed pneumonia. No focal lung nodule or mass. No effusion or pneumothorax. Central airways patent. LYMPHOVASCULAR STRUCTURES: Aortic and heart size normal. No pericardial effusion. Mild great vessel calcifications. No significant coronary artery calcifications. No mediastinal, hilar or axillary adenopathy or free fluid collection. THYROID GLAND: Unremarkable to the extent included. UPPER ABDOMEN: A small retrocardiac hiatal hernia is seen with a curvilinear composite mesh seen along the posterior margin of the hernia, unchanged. There is slight dilatation and perhaps diffuse thickening of the mid and distal esophageal wall, suboptimally assessed due to decompression of the esophagus but raising the suspicion of subtle esophagitis. Included portion of the pancreas may be mildly atrophic. Included portions of the solid organs in the upper abdomen are otherwise unremarkable. BONES: No suspicious focal findings. IMPRESSION: 1. The parenchymal opacities seen on plain film corresponds to an area of groundglass opacity in the left upper lobe by CT scan and is suspicious for a focal area of pneumonia. 2. There is underlying prominent emphysematous lung disease with superimposed interstitial lung disease and small areas of fibrosis in the lung. Findings may be related to respiratory bronchiolitis interstitial lung disease (RB ILD) in the correct clinical setting. Close clinical correlation is requested. Other etiologies for interstitial lung disease on the spectrum of usual interstitial pneumonitis may be possible as well, including idiopathic pulmonary fibrosis. 3. No significant adenopathy. 4. Small retrocardiac hiatal hernia with posterior composite mesh seen in place.
[2017-06-20 06:31] VITALS: BP 134/94
--- NOTE | 2017-06-20 06:49 | PN- Housestaff ---
Lamont Weber MD,[facility] 06/20/17 0649: Subjective Follow-up For: Pneumonia, sepsis Supratherapeutic INR Subjective: Patient visited today, miesha dean, was lying in bed comfortably in no acute distress, was alert and oriented. No fever or chills, no shortness of breathing, no cough or sputum, no chest pain , no other events. reported to have no change in symptoms, had bowel movement (no complaint) Review of Systems Constitutional: Reports: see HPI. Objective Last 24 Hrs of Vital Signs/I&O Vital Signs Date Time Temp Pulse Resp B/P B/P Pulse O2 O2 Flow FiO2 Mean Ox Delivery Rate 06/20 08 98.2 89 20 134/94 06/20 0631 98.2 89 20 134/94 97 06/20 0000 Room Air 06/19 2110 98.6 98 17 129/78 06/19 2053 Room Air Room Air 06/19 1353 Room Air 06/19 1344 98.2 100 18 110/66 98 Room Air 06/19 1231 97.1 96 18 144/81 98 Intake & Output 06/20 1600 06/20 0800 06/20 0000 Intake Total 240 300 Output Total 100 400 900 Balance -100 -160 -600 Intake, Oral 240 300 Output, Urine 100 400 900 Physical Exam General Appearance: Alert, Oriented X3, Cooperative, No Acute Distress Skin: No Significant Lesion Skin Temp/Moisture Exam: Warm/Dry HEENT: Atraumatic, EOMI Cardiovascular: Normal S1, Normal S2 Lungs: Normal Air Movement, mild crackles in one side Abdomen: Soft, No Tenderness, relatiely distanded, no change compared to yesterday. Neurological: Normal Speech, grossly no change compared to yesterdayt weakness in r side Current Medications: Current Medications Sig/Juan Start time Last Medication Dose Route Stop Time Status Admin Acetaminophen 0 .STK-MED ONE 06/19 1307 DC PO Acetaminophen 650 MG Q6 06/18 2359 AC 06/20 PO 0510 Albuterol Sulfate 3 ML Q4P PRN 06/19 2115 AC INH Atorvastatin Calcium 10 MG 1700 06/19 1700 AC 06/19 PO 1735 Azithromycin 500 MG DAILY 06/19 1800 AC 06/20 Dextrose/Water 250 ML IV 0819 Budesonide/ 2 PUF BID 06/19 2030 AC 06/20 Formoterol Fumarate INH 0820 Ceftriaxone Sodium 1,000 MG DAILY 06/19 1800 AC 06/20 IV 0818 Enoxaparin Sodium 40 MG DAILY 06/19 0900 AC 06/20 SC 0818 Insulin Aspart 0 TIDAC 06/19 0800 AC 06/19 SC 0827 Metoprolol Tartrate 25 MG BID 06/19 0900 AC 06/20 PO 0818 Omeprazole 40 MG DAILY AC 06/19 0700 AC 06/20 PO 0510 Polyethylene Glycol 17 GM DAILY 06/19 1145 AC 06/20 PO 0818 Senna/Docusate Sodium 2 TAB DAILY 06/19 1145 AC 06/20 PO 0818 Warfarin Sodium 5 MG .STK-MED ONE 06/19 1708 DC PO 06/19 1709 Warfarin Sodium 1 MG .STK-MED ONE 06/19 1707 DC PO 06/19 1708 Warfarin Sodium 6 MG COUMADIN 1700 ONE 06/19 1700 DC 06/19 PO 06/19 1701 1735 Zonisamide 100 MG DAILY 06/19 0900 AC 06/20 PO 0817 Last 24 Hrs of Lab/Kaushik Results Last 24 Hrs of Labs/Mics: Laboratory Tests 06/20/17 0750: Anion Gap 12, Estimated GFR 56 L, BUN/Creatinine Ratio 10.8, PT 19.8 H, INR 1.81 H, CBC w Diff NO MAN DIFF REQ, RBC 4.58 L, MCV 89.8, MCH 29.4, MCHC 32.7 L, RDW 14.4, MPV 6.9 L, Gran % 74.1, Lymphocytes % 16.0 L, Monocytes % 6.8, Eosinophils % 2.9, Basophils % 0.2, Absolute Granulocytes 10.0 H, Absolute Lymphocytes 2.2, Absolute Monocytes 0.9 H, Absolute Eosinophils 0.4, Absolute Basophils 0 Assessment/Plan Assessment: Mr. Herbert is a 62-year-old male presented with weakness and increased BS PMH: CVA with residual RUE paralysis, DM, HTN, HLD, AFIB, seizures Patient meet sepsis criteria, was admitted to [facility] floor for management of following conditions: Problem list: Sepsis, most likely sec to CAP Supratherapeutic INR Plan: - Admit to general med for further evaluation and management - IV ceftriaxone and azithromycin for CAP - Resume home meds - Dose Warfarin per INR, today 2.3, will dose 6mg - Hemoglobin A1c - Accuchek and Novolog SS - Await pancultures - Pain: Acetaminophen - Contact supervising caregiver-Ted, contacted today with no answer - CT scan of chest without contrast for further evlauation of opacity was done which confirmed pneumonia related opacity Diet: Heart healthy DVT ppx: Warfarin Code: Full Problem List: 1. Pneumonia 2. Sepsis Pain Ratin Pain Location: None Pain Goal: Pain 4 or less Pain Plan: Continue current plan Tomorrow's Labs & Rationales: cbc inr Anthony Do MD 06/20/17 1332: Attending MD Review Statement Attending Statement Attending MD Statement: examined this patient, discuss w/resident/PA/GEAR CODING MACHINE OPERATOR, agreed w/resident/PA/GEAR CODING MACHINE OPERATOR, reviewed EMR data (avail), discussed with nursing Attending Assessment/Plan: Resting comfortably and not in any acute distress. He is alert and oriented 3 and conversant appropriately without any distress. Currently denies any symptoms of cough with expectoration, chest pain or shortness of breath. Physical examination is significant for right upper extremity weakness with power of 2/5 in the right upper extremity. Power in his lower extremities appear appropriate bilaterally. his heart sounds are regular with no audible murmur. Lungs have adequate entry bilaterally with no added sounds. His abdomen is distended. Abdomen is soft and nontender with no palpable masses. He has no peripheral edema. He has no palpable adenopathy. Problems: 1. Sepsis from left lower lobe pneumonia Community acquired - Leucocytosis is resolving 2. SubTherapeutic INR 3. Distended abdomen; chronic per patient. CT abdomen showed stool retention Plan: Continuing on Ceftriaxone and Azithromycin - Day 3 will switch to PO tomorrow and plan for discharge Blood and sputum cultures pending Since patient is on Antibiotics - the INR is expected to rise - so will continue with the same dose of warfarin today Mild bump in creatinine - encourage hydration - repeat BMP tomorrow
[2017-06-20 08:27] LABS: ABSOLUTE BASOPHIL COUNT 0 /CUMM (0.0-0.2); ABSOLUTE EOSINOPHIL COUNT 0.4 /CUMM (0.0-0.7); ABSOLUTE LYMPH COUNT 2.2 /CUMM (1.2-3.4); ABSOLUTE MONOCYTE COUNT 0.9 /CUMM (0.10-0.60); BASOPHIL % 0.2 % (0.0-2.0); EOSINOPHIL % 2.9 % (0-5); GRANULOCYTE % 74.1 % (42.2-75.2); HEMATOCRIT 41.2 % (42-52); MEAN CORPUSCULAR HGB 29.4 PG (27.0-31.0); MEAN CORPUSCULAR HGB CONC 32.7 G/DL (33.0-37.0); MEAN CORPUSCULAR VOLUME 89.8 FL (80.0-94.0); MEAN PLATELET VOLUME 6.9 FL (7.4-10.4); PLATELET COUNT 285 /CUMM (130-400); RBC DISTRIBUTION WIDTH 14.4 % (11.5-14.5); RED BLOOD CELL CT 4.58 /CUMM (4.70-6.10); WHITE BLOOD CELL COUNT 13.5 /CUMM (4.8-10.8)
[2017-06-20 08:42] LABS: PT 19.8 SEC (9.4-12.5)
[2017-06-20 14:18] VITALS: BP 114/72
[2017-06-20 22:04] VITALS: BP 120/80
[2017-06-21 07:11] VITALS: BP 124/76
--- NOTE | 2017-06-21 07:14 | PN- Housestaff ---
Lamont Weber MD,[facility] 06/21/17 0714: Subjective Follow-up For: Pneumonia, sepsis Supratherapeutic INR Subjective: Patient visited today, was lying in bed comfortably in no acute distress, was alert and oriented. No fever or chills, no shortness of breathing, no chest pain, no other events. Patient had no complaint, reported he feel good to be discharged home Review of Systems Constitutional: Reports: see HPI. Objective Last 24 Hrs of Vital Signs/I&O Vital Signs Date Time Temp Pulse Resp B/P B/P Pulse O2 O2 Flow FiO2 Mean Ox Delivery Rate 06/21 1021 98 Room Air Room Air 06/21 1004 90 128/92 06/21 0711 98.2 94 20 124/76 97 06/21 0000 Room Air 06/20 2204 98.3 96 20 120/80 97 Room Air 06/20 2102 98.3 92 20 120/80 06/20 1955 96 Room Air 06/20 1418 99.0 97 18 114/72 98 06/20 1357 98 Room Air Intake & Output 06/21 1600 06/21 0800 06/21 0000 Intake Total 480 Output Total 400 Balance 80 Intake, Oral 480 Output, Urine 400 Physical Exam General Appearance: Alert, Oriented X3, Cooperative, No Acute Distress Skin Temp/Moisture Exam: Warm/Dry Sepsis Skin Exam (color): Normal for Ethnicity HEENT: Atraumatic, EOMI, Mucous Membr. moist/pink Cardiovascular: Normal S1, Normal S2 Lungs: Clear to Auscultation, Normal Air Movement Abdomen: Soft, No Tenderness Neurological: grossly no change compared to yesterday, baseline hemiparesis in the right side Extremities: No Edema Current Medications: Current Medications Sig/Juan Start time Last Medication Dose Route Stop Time Status Admin Acetaminophen 650 MG Q6 06/18 2359 AC 06/21 PO 0521 Albuterol Sulfate 3 ML Q4P PRN 06/19 2114 AC INH Atorvastatin Calcium 10 MG 1700 06/19 1700 AC 06/20 PO 1716 Azithromycin 500 MG DAILY 06/19 1800 AC 06/21 Dextrose/Water 250 ML IV 1005 Budesonide/ 2 PUF BID 06/19 2030 AC 06/21 Formoterol Fumarate INH 1005 Ceftriaxone Sodium 1,000 MG DAILY 06/19 1800 AC 06/21 IV 0829 Enoxaparin Sodium 40 MG DAILY 06/19 899 SC 06/20 LA 0818 Insulin Aspart 0 TIDAC 06/19 08 06/20 SC 1714 Metoprolol Tartrate 25 MG BID 06/19 899 AC 06/21 PO 1004 Omeprazole 40 MG DAILY AC 06/19 07 AC 06/21 PO 0521 Patient Medication 1 ED ONE ONE 06/20 1944 SC Teaching ED 06/20 1945 Polyethylene Glycol 17 GM DAILY 06/19 114 AC 06/21 PO 1004 Senna/Docusate Sodium 2 TAB DAILY 06/19 114 AC 06/21 PO 1004 Warfarin Sodium 6 MG COUMADIN 06/21 1700 AC PO 06/21 170 Warfarin Sodium 6 MG COUMADIN 06/20 1700 DC 06/20 PO 06/20 2359 1716 Zonisamide 100 MG DAILY 06/19 899 AC 06/21 PO 1005 Last 24 Hrs of Lab/Kaushik Results Last 24 Hrs of Labs/Mics: Laboratory Tests 06/21/17714: PT 23.4 H, INR 2.13 H, CBC w Diff NO MAN DIFF REQ, RBC 4.38 L, MCV 89.6, MCH 29.7, MCHC 33.2, RDW 14.3, MPV 6.7 L, Gran % 63.3, Lymphocytes % 22.3, Monocytes % 7.8, Eosinophils % 6.2 H, Basophils % 0.4, Absolute Granulocytes 5.4, Absolute Lymphocytes 1.9, Absolute Monocytes 0.7 H, Absolute Eosinophils 0.5, Absolute Basophils 0 Assessment/Plan Assessment: Mr. Herbert is a 62-year-old male presented with weakness and increased BS PMH: CVA with residual RUE paralysis, DM, HTN, HLD, AFIB, seizures Laboratory and imaging tests were performed at the time of admission. Patient meet sepsis criteria. Chest x-ray revealed consolidation. Patient was admitted to floor for management of following conditions: Sepsis, most likely sec to CAP Patient meet criteria for sepsis, considering fever high WBC. Patient received IV antibiotic, ceftriaxone and azithromycin. The overall clinical condition improved. Patient was stable to be discharged. We attempted to complete the course of antibiotic to 5 days with oral Augmentin. Supratherapeutic INR Patient's INR at time of admission was 3.5, Coumadin was held for one dose and came back to therapeutic range. We continued the dose of 6 mg Coumadin. Chronic medical conditions, diabetes mellitus We continued home medication, however during admission he put patient on Accu- Chek and insulin. Patient was stable to be discharged with recommendations to follow with PCP in outpatient. Problem List: 1. Sepsis 2. Pneumonia Pain Ratin Pain Location: None Pain Goal: Pain 4 or less Pain Plan: Continue current plan Tomorrow's Labs & Rationales: None Anthony Do MD 06/21/17 1221: Attending MD Review Statement Attending Statement Attending MD Statement: examined this patient, discuss w/resident/PA/SAP BW BI DEVELOPER, agreed w/resident/PA/SAP BW BI DEVELOPER, reviewed EMR data (avail), discussed with nursing, discussed with case mgmt Attending Assessment/Plan: Resting comfortably and not in any acute distress. He is alert and oriented 3 and conversant appropriately without any distress. Currently denies any symptoms of cough with expectoration, chest pain or shortness of breath. Physical examination is significant for right upper extremity weakness with power of 2/5 in the right upper extremity. Power in his lower extremities appear appropriate bilaterally. his heart sounds are regular with no audible murmur. Lungs have adequate entry bilaterally with no added sounds. His abdomen is mildly distended. Abdomen is soft and nontender with no palpable masses. He has no peripheral edema. He has no palpable adenopathy. Problems: 1. Sepsis from left lower lobe pneumonia Community acquired - Leucocytosis is resolving 2. Therapeutic INR 3. Distended abdomen; chronic per patient. CT abdomen showed stool retention Plan: PLAN for discharge today with 3 more days of augmentin Blood and sputum cultures are negative so far Encourage hydration and repeat BMP in 1 week.
[2017-06-21 07:36] LABS: ABSOLUTE BASOPHIL COUNT 0 /CUMM (0.0-0.2); ABSOLUTE EOSINOPHIL COUNT 0.5 /CUMM (0.0-0.7); ABSOLUTE GRANULOCYTE CT 5.4 /CUMM (1.4-6.5); ABSOLUTE LYMPH COUNT 1.9 /CUMM (1.2-3.4); ABSOLUTE MONOCYTE COUNT 0.7 /CUMM (0.10-0.60); BASOPHIL % 0.4 % (0.0-2.0); EOSINOPHIL % 6.2 % (0-5); GRANULOCYTE % 63.3 % (42.2-75.2); HEMATOCRIT 39.3 % (42-52); MEAN CORPUSCULAR HGB 29.7 PG (27.0-31.0); MEAN CORPUSCULAR HGB CONC 33.2 G/DL (33.0-37.0); MEAN CORPUSCULAR VOLUME 89.6 FL (80.0-94.0); MEAN PLATELET VOLUME 6.7 FL (7.4-10.4); PLATELET COUNT 307 /CUMM (130-400); RBC DISTRIBUTION WIDTH 14.3 % (11.5-14.5); RED BLOOD CELL CT 4.38 /CUMM (4.70-6.10); WHITE BLOOD CELL COUNT 8.6 /CUMM (4.8-10.8)
[2017-06-21 08:15] LABS: PT 23.4 SEC (9.4-12.5)
[2017-06-21] MEDS ORDERED: AUGMENTIN 875-1 EACH PO ×2 (09:35→09:50)
--- NOTE | 2017-06-21 09:39 | Patient Discharge Instructions ---
Discharge Instructions General Discharge Information You were seen/treated for: Pneumonia Supratherapeutic INR Watch for these problems: Severe weakness, dizziness, cough, sputum, shortness of breathing, any sign of bleeding or worsening of any other symptoms Special Instructions: Please follow with your PCP within one week of discharge regarding your lung infection as well as supratherapeutic INR. Diet Continue normal diet: No Recommended Diet: Diabetic Activity Full Activity/No Limits: No Activity Self Limited: Yes Acute Coronary Syndrome Inclusion Criteria At DC or during hospital stay patient has or had the following: ACS DIAGNOSIS No Discharge Core Measures Meds if any: Prescribed or Continued at Discharge Meds if any: NOT Prescribed or Continued at Discharge Congestive Heart Failure Inclusion Criteria At DC or during hospital stay patient has or had the following: CHF DIAGNOSIS No Discharge Core Measures Meds if any: Prescribed or Continued at Discharge Meds if any: NOT Prescribed or Continued at Discharge Cerebrovascular accident Inclusion Criteria At DC or during hospital stay patient has or had the following: CVA/TIA Diagnosis No Discharge Core Measures Meds if any: Prescribed or Continued at Discharge Meds if any: NOT Prescribed or Continued at Discharge Venous thromboembolism Inclusion Criteria VTE Diagnosis No VTE Type NONE VTE Confirmed by (Test) NONE Discharge Core Measures - Per Current guidelines, there needs to be overlap - treatment for the first 5 days of Warfarin therapy. - If discharged on Warfarin prior to 5 days of - overlap therapy, the patient will need to be - assessed for post discharge needs including - *Post discharge parental anticoagulation - *Warfarin and/or parental anticoagulation education - *Follow up date to check INR post discharge At least 5 days overlap therapy as Inpatient No Meds if any: Prescribed or Continued at Discharge Note: Overlap Therapy is Warfarin and Anticoagulant Meds if any: NOT Prescribed or Continued at Discharge
[2017-06-21 10:04] VITALS: BP 128/92
--- NOTE | 2017-06-21 11:41 | Discharge Summary ---
Visit Information Visit Dates Admission Date: 06/18/17 Discharge Date: 06/21/17 Hospital Course Course Attending Physician: Elena Grimes MD Primary Care Physician: Devendra Escalante MD Hospital Course: Mr. Herbert is a 62-year-old male presented with weakness and increased BS PMH: CVA with residual RUE paralysis, DM, HTN, HLD, AFIB, seizures Laboratory and imaging tests were performed at the time of admission. Patient meet sepsis criteria. Chest x-ray revealed consolidation. Patient was admitted to floor for management of following conditions: Sepsis, most likely sec to CAP Patient meet criteria for sepsis, considering fever high WBC. Patient received IV antibiotic, ceftriaxone and azithromycin. The overall clinical condition improved. CT scan was performed: 1. The parenchymal opacities seen on plain film corresponds to an area of groundglass opacity in the left upper lobe by CT scan and is suspicious for a focal area of pneumonia. 2. There is underlying prominent emphysematous lung disease with superimposed interstitial lung disease and small areas of fibrosis in the lung. Findings may be related to respiratory bronchiolitis interstitial lung disease (RB ILD) in the correct clinical setting. Close clinical correlation is requested. Other etiologies for interstitial lung disease on the spectrum of usual interstitial pneumonitis may be possible as well, including idiopathic pulmonary fibrosis. 3. No significant adenopathy. 4. Small retrocardiac hiatal hernia with posterior composite mesh seen in place. Patient was stable to be discharged. We attempted to complete the course of antibiotic to 5 days with oral Augmentin. Supratherapeutic INR Patient's INR at time of admission was 3.5, Coumadin was held for one dose and came back to therapeutic range. We continued the dose of 6 mg Coumadin. Chronic medical conditions, diabetes mellitus We continued home medication, however during admission he put patient on Accu- Chek and insulin. Patient was stable to be discharged with recommendations to follow with PCP in outpatient. Allergies: Coded Allergies: No Known Allergies (06/18/17) Significant Procedures: None Disposition Summary Disposition Principal Diagnosis: Sepsis pneumonia Additional Diagnosis: Supratherapeutic INR Discharge Disposition: home health services Discharge Instructions General Discharge Information Code Status: Full Code Patient's Diet: Diabetic Patient's Activity: As tolerated, ambulates with cranium baseline Follow-Up Instructions/Appts: Please follow with your PCP within one week of discharge regarding your lung infection as well as supratherapeutic INR. Medications at Discharge Discharge Medications: Continue taking these medications: Tamsulosin HCl (Flomax) 0.4 MG CAP.ER.24H 1 Capsule ORAL DAILY Comments: NOT GIVEN Fluticasone/Salmeterol (Advair 250-50 Diskus) 250 MCG-50 MCG/DOSE BLST.W.DEV 1 Puff Inhale through mouth TWICE DAILY Comments: NOT GIVEN Pantoprazole Sodium (Protonix) 40 MG TABLET.DR 1 Tablet ORAL DAILY Comments: Last Taken:06/21/17 Time:0521 Zonisamide (Zonegran) 100 MG CAPSULE 1 Capsule ORAL DAILY Comments: Last Taken:06/21/17 Time:1005 Metoprolol Tartrate (Metoprolol Tartrate) 25 MG TABLET 1 Tablet ORAL TWICE DAILY Comments: Last Taken:06/21/17 Time:1004 Warfarin Sodium (Coumadin) 6 MG TABLET 1 Tablet ORAL DAILY Comments: Last Taken:06/21/17 Time:1716 Albuterol Sulfate (Proair Hfa) 90 MCG HFA.AER.AD 2 Puff Inhale through mouth EVERY 4-6 HOURS NEEDED as needed for lung Comments: Last Taken:06/19/17 Time:2115 Metformin HCl (Glucophage) 1,000 MG TABLET 1 Tablet ORAL DAILY Comments: NOT GIVEN Simvastatin (Simvastatin*) 20 MG TABLET 1 Tablet ORAL Every night Comments: NOT GIVEN Start taking the following new medications: Amoxicillin/Potassium Clav (Augmentin 875-125 Tablet) 875 MG-125 MG TABLET 1 Tablet ORAL TWICE DAILY Qty = 3 No Refills Instructions: . Comments: NOT GIVEN Copies To: Ava KAUR,Devendra Bhagat Attending MD Review Statement Documenting Attending: Ernestina KAUR,Anthony
== END 2017-06-21 12:58 | disposition home health service (06) | DRG 720 ==
LOC: ERH 16:20 → 2NB 20:49 → ERHI 20:49 → ENRESERV 06-19 12:46 → ENTRNSPT 06-19 13:00 → EDTRNSPT 06-19 13:15 → EDTRNSPTSTS 06-19 13:15 → 2NB 06-19 13:20 → CMPTRNSPT 06-19 13:44 → ENPENDDIS 06-21 09:55 → 2NB 06-21 12:58
PROVIDERS: Emergency Medicine; Internal Medicine; Radiology Vascular & Interventional Radiology
DX: A41.9 Sepsis, unspecified organism (principal); I48.91 Unspecified atrial fibrillation; Z79.01 Long term (current) use of anticoagulants; I10 Essential (primary) hypertension; J44.9 Chronic obstructive pulmonary disease, unspecified; R89.2 Abnormal level of other drugs, medicaments and biological substances in specimens from other organs, systems and tissues; T45.515A Adverse effect of anticoagulants, initial encounter; Z79.84 Long term (current) use of oral hypoglycemic drugs; I69.351 Hemiplegia and hemiparesis following cerebral infarction affecting right dominant side; E78.5 Hyperlipidemia, unspecified; E11.65 Type 2 diabetes mellitus with hyperglycemia; R79.1 Abnormal coagulation profile; J18.1 Lobar pneumonia, unspecified organism; K44.9 Diaphragmatic hernia without obstruction or gangrene
CPT/HCPCS: 2NBSP; ERO; 36415; 36592; 71045; 74177; 81001; 82436; 87040; 87070; 87086; 87449; 87450; 87804; 87804-59; 93005; 93010; 96361; 96374; 96375; 99291; J0131; J0456; J0696; J1650; J3490; J7060